=== PATIENT | female | born 1950 | race Caucasian/White ===

== ENCOUNTER 2016-07-09 08:43 | Outpatient (CLI) | payer MEDICARE ==
[2016-07-09] VITALS (10 sets, daily range): BP systolic 110–133; BP diastolic 46–71
[~2016-07-09] VITALS: Ht 167.6 cm; Wt 106.6 kg
[2016-07-09 07:00] LABS: HEMATOCRIT 40.8 % (36.0-47.0); HEMOGLOBIN 13.6 g/dL (12.0-15.5); RED BLOOD COUNT 4.21 x10^6/uL (3.50-5.40); RED CELL DISTRIBUTION WIDTH 15.6 % (11.5-14.5); WHITE BLOOD COUNT 7.5 x10^3/uL (4.0-11.0)
[2016-07-09 07:10] LABS: CALCIUM 8.8 mg/dL (8.5-10.1); CREATININE 1.2 mg/dL (0.6-1.0); GFR 44.8; PROTHROMBIN TIME PATIENT 12.3 SEC (11.7-14.0)
[2016-07-09 07:11] LABS: POTASSIUM 3.8 mmol/L (3.5-5.1)
[~2016-07-09 08:43] MED LIST: ACET325T9 PO; AMIO200T2 PO; ASPI-482 PO; ASPI325T4 PO; ATOR10TA60 PO; BUDE10.2 IH; CA C1TAB62 PO; CHOL20002 PO; CONTRAST GIVEN MC PRN; DOCU100T5 PO; FENTANYL PF 250 MCG/5 ML VIAL. IV ONE; FENTANYL PF 250 MCG/5 ML VIAL. ONE; FISH1CAP PO; FLUT12AE2 IH; FURO-68 PO; GABA-586 PO; GLIM4TAB2 PO; HEPARIN for IV BOLUS 10,000 UNIT/10 ML VIAL. IART ONE; HEPARIN for IV BOLUS 10,000 UNIT/10 ML VIAL. ONE; IODIXANOL 320 MG/ML 100 ML VIAL. IART ONE; IODIXANOL 320 MG/ML 100 ML VIAL. ONE; ISOS60TA2 PO; IV 1/2 NORMAL SALINE 1,000 ML IV SCH; LIDOCAINE 2% 20 ML VIAL. IJ ONE; LIDOCAINE 2% 20 ML VIAL. ONE; MAGN71.5 PO; METF750T2 PO; METO100T11 PO; MIDAZOLAM HCL/PF 5 MG/5 ML VIAL IV ONE; MIDAZOLAM HCL/PF 5 MG/5 ML VIAL ONE; MULT1TAB52 PO; NITROGLYCERIN 200 MCG/2 ML SYRINGE FOR CATH/VASC LAB. IART ONE; NITROGLYCERIN 200 MCG/2 ML SYRINGE FOR CATH/VASC LAB. ONE; POTA20TA82 PO; SERT50TA PO; VENTOLIN HFA18 GM INH; VERAPAMIL 5 MG/2 ML VIAL. IART ONE; VERAPAMIL 5 MG/2 ML VIAL. ONE; ZOLP5TAB PO
[2016-07-09] MEDS ORDERED: IV 1/2 NORMAL SALINE 1,000 ML IV SCH (09:28)
--- NOTE | 2016-07-09 09:28 | PDOC ---
MODERATE SEDATION ASSESSMENT RISKS/ALTERNATIVES Risks/Alternatives Risks and alternatives of this type of sedation and procedure discussed with: RISK/ALTERNATIVES: Patient H & P ON CHART H & P H & P on chart and reviewed for co-morbid conditions and appropriate labs. H&P ON CHART: Yes STATUS PREG STATUS ASSESSED: N/A MEDS/ALLERGIES REVIEWED Meds/Allergies Reviewed Medications and Allergies including time and route of recently administered narcotics and sedatives. MEDS/ALLERGIES REVIEWED: Yes ASA RATING ASA RATING: II AIRWAY ASSESSMENT Airway Assessment Airway patency, oral function limitations, presence of caps, crowns, dentures, partials, and ability to extend neck assessed. AIRWAY ASSESSMENT: Yes MALLAMPATI SCORE MALLAMPATI SCORE: II PRE-SEDATION ASSESSMENT PRE-SEDATION ASSESSMENT: Yes SANGEETA GARZA MD Jul 09, 2016 09:28
--- NOTE | 2016-07-09 09:35 | CARD ---
APPROVED REPORT Procedure(s) performed: Left heart catheterization, selective coronary angiography and left ventricul ography via right transradial approach. INDICATION The indication(s) include : Non sustained ventricular tachycardia, coronary artery disease. PROCEDURE NARRATIVE After explaining the risks, benefits and alternative options, informed consent was obtained from lan ent. Patient was brought to the cardiac Strip [place] and right wrist was prepped and draped in the usual fashion after confirming a positive modified Igor's test. Arterial access was obtained in the [facility] radial artery and a 6 Bangladeshi sheath was inserted. 6 Bangl[place] Gucci catheter was used to perform navdeep ective angiography of the left and right coronary arteries. 6 Bangladeshi pigtail catheter was used to pe rform left ventriculography. Patient tolerated the procedure well. Hemostasis was achieved using TR band. There were no immediate complications. The following findings were noted. FINDINGS 1. Hemodynamics: Left ventricular end-diastolic pressure of 18 mmHg. No pullback gradient across th e aortic valve. 2. Left ventriculography: Normal left ventricle systolic function with ejection fraction estimated at 60%. No significant mitral regurgitation seen. 3. Coronary angiography: a. The left main coronary artery arose from the left sinus of Valsalva, gave rise to the left anteri or descending and left circumflex arteries and did not show any significant stenosis. b. The left anterior descending artery did not show any significant stenosis. c. The left circumflex artery showed a patent stent in the midsegment. There is a 30% stenosis noted just before the stent and another 30% stenosis noted beyond the stent. d. The right coronary artery was a dominant vessel arising from the right sinus of Valsalva that arianne wed 90% stenosis followed by 100% chronic total occlusion in the midsegment with distal reconstitutio n of posterior descending and posterolateral branches from left to right collaterals. Conclusion 1. Chronic total occlusion of the right coronary artery with [id number] collaterals (described in prior cardiac catheterization) and widely patent stent in the left circumflex artery. 2. Normal left ventricle systolic function with ejection fraction estimated at 60%. Recommendations Medical management for nonsustained ventricular tachycardia. If arrhythmia recurs in spite of antibio tic therapy, we will consider percutaneous revascularization of the chronic total occlusion.
== END 2016-07-09 12:05 | disposition home or self-care (01) ==
LOC: CCL 08:43
PROVIDERS: ATTEND Internal Medicine Cardiovascular Disease
DX: Z45.2 Encounter for adjustment and management of vascular access device (principal); I25.10 Atherosclerotic heart disease of native coronary artery without angina pectoris; I25.82 Chronic total occlusion of coronary artery; I47.2 Ventricular tachycardia; Z95.5 Presence of coronary angioplasty implant and graft
CPT/HCPCS: 36415; 80048; 85027; 85610; 93458; C1769; C1892; J2250; J3010; J3490